=== PATIENT | female | born 1955 | race Caucasian/White ===

== ENCOUNTER → 2016-10-20 | Outpatient (CLI) | payer BC, OTHER ==
--- NOTE | 2016-10-20 12:14 | MA ---
Diagnostic Digital Mammogram Right Breast With iCAD Analysis Clinical Indications: Follow-up probably benign area of glandular asymmetry noted in the central righ t breast on the oblique view from the screening study January 14, 2016 and further evaluated on diagnos tic assessment January 17, 2016. Technique: Standard cephalocaudal and mediolateral oblique projections of the right breast are obtai analia. This examination is processed by the iCAD computer aided detection system. Comparison: December 2015. Breast density: Type 2; 25 to 50%. Findings: CAD was reviewed. Mild glandular asymmetry in the central right breast on the oblique view is unchanged. No suspicious microcalcifications are seen. No correlate is found on the craniocaudal v iew. Impression: Benign 6 month mammographic follow-up, BI-RADS 2. Recommendation: Resume routine mammographic screening in December 2016 as long as physical examination i s negative. A verbal report was given to the patient. [facility] will send a result letter to the patient. 6
== END ==
LOC: FIMAGING 11:39
PROVIDERS: ATTEND Internal Medicine
DX: R92.2 Inconclusive mammogram (principal)
CPT/HCPCS: G0206

== ENCOUNTER 2017-08-19 10:42 | Emergency (ER) | payer BC ==
[2017-08-19] MEDS ORDERED: LORazepam 2 MG/ML INJ ONE (10:47)
[2017-08-19 10:53] VITALS: TEMP 98.8
[2017-08-19] MEDS ORDERED: LORazepam 2 MG/ML INJ IVP ONE (10:54)
[2017-08-19] MEDS ORDERED: NS 1,000 ML IV ONE (11:06)
[2017-08-19 11:12] LABS: % IMMATURE GRANULYOCYTES 0.5 % (0.0-1.1); ABSOLUTE IMMATURE GRANULOCYTES 0.06 10^3/uL (0.00-0.10); ADD DIFF? NO; ADD MORPH? NO; ADD SCAN? NO; ATYPICAL LYMPHOCYTE FLAG 10 (0-99); FRAGMENT RBC FLAG 0 (0-99); HEMATOCRIT 52.4 % (38.0-47.0); HEMOGLOBIN 17.7 g/dL (12.6-16.3); LEFT SHIFT FLG 0 (0-99); LIPEMIA HEMOLYSIS FLAG 90 (0-99); MEAN CELL HEMOGLOBIN 30.5 pg (27.9-34.1); MEAN CELL HEMOGLOBIN CONCENTR. 33.8 g/dL (32.4-36.7); MEAN CELL VOLUME 90.3 fL (81.5-99.8); MEAN PLATELET VOLUME 8.6 fL (8.7-11.7); PLATELET CLUMPS FLAG 0 (0-99); PLATELET COUNT 365 10^3/uL (150-400); RED CELL DISTRIBUTION WIDTH 13.9 % (11.5-15.2)
--- NOTE | 2017-08-19 11:16 | CPEKG ---
Heart Rate: 108 RR Interval: 556 P-R Interval: 128 QRSD Interval: 72 QT Interval: 328 QTC Interval: 440 P [place]: 31 QRS [place]: -16 T Wave [place]: 17 EKG Severity - OTHERWISE NORMAL ECG - EKG Impression: SINUS TACHYCARDIA EKG Impression: BORDERLINE LEFT AXIS DEVIATION Electronically Signed By: Sharif Savage 19-Aug-2017 12:57:04
[2017-08-19 11:17] LABS: ANION GAP 19 mEq/L (8-16); CALCIUM 9.9 mg/dL (8.5-10.4); CARBON DIOXIDE 15 mEq/l (22-31); CHLORIDE 106 mEq/L (97-110); CREATININE 0.8 mg/dL (0.6-1.0); GLOMERULAR FILTRATION RATE > 60; GLUCOSE 82 mg/dL (70-100); POTASSIUM 4.6 mEq/L (3.5-5.2); SODIUM 140 mEq/L (134-144)
--- NOTE | 2017-08-19 12:00 | EDPHY ---
H & P Time Seen by Provider: 08/19/17 11:36 HPI/ROS: CHIEF COMPLAINT: Seizure HISTORY OF PRESENT ILLNESS: 62-year-old woman is on multiple medications for rheumatoid arthritis including daily benzodiazepine. She woke up early this morning at 4:45 a.m. and had 40 oz of very strong coffee which is typical for her and then felt dehydrated and lightheaded went to the bed and then does not remember anything else. Her reports seeing her clenched all 4 extremities foam at the mouth and have flexion seizure type activity for couple of minutes. She was confused afterwards and did bite her tongue and was incontinent. Currently she feels back to normal. Of note she started Wellbutrin when she saw the [facility] in February for an attempt to quit smoking. REVIEW OF SYSTEMS: Eye: no change in vision ENT: no sore throat Cardiac: no chest pain or syncope Pulmonary: no cough or SOB Abdomen: no vomiting, diarrhea, abdominal pain Musculoskeletal: no back pain Skin: no rash Neuro: no headache Constitutional: no fever : no urinary symptoms A comprehensive 10 point review of systems is otherwise negative aside from elements mentioned in the history of present illness. PAST MEDICAL HISTORY: Rheumatoid arthritis and fibromyalgia, anxiety Social history: , infrequent alcohol. General Appearance: Alert and conversant, cooperative. Eyes: No scleral icterus. ENT, Mouth: right sided tongue abrasion. Respiratory: Normal respiratory effort, breath sounds equal, lungs are clear to auscultation. Cardiovascular: Regular rate and rhythm. Gastrointestinal: Abdomen is soft and non tender. Neurological: Alert and oriented x3. Normally conversant. Face symmetric, normal movement and sensation in all extremities. Skin: Warm and dry, no rashes. Musculoskeletal: No peripheral edema and no joint swelling. Psychiatric: Not agitated. Emergency Department course/MDM: Patient has low venous bicarbonate of 15, tongue abrasion, incontinence, describes seizure activity and was confused afterwards for at least 20 minutes. More likely to be seizure than syncope. Noncontrast head CT, warned no further Wellbutrin which I think is the most likely cause. Warned no driving. 1400: discussed negative head CT per Nati with the patient. 1417: Discussed with Jensen. Discharge with no further Wellbutrin, especially as the patient is been only intermittently taking it. She stopped about a month ago and then only restarted at 3 or 4 days ago. 1445: Neurologically stable, okay for discharge. Smoking Status: Current every day smoker Constitutional: Initial Vital Signs Temperature (C) 37.1 C 08/19/17 10:51 Heart Rate 127 H 08/19/17 10:51 Respiratory Rate 20 08/19/17 10:51 Blood Pressure 117/98 H 08/19/17 10:51 O2 Sat (%) 93 08/19/17 10:51 O2 Delivery Mode Room Air Allergies/Adverse Reactions: milnacipran HCl [From Savella] Allergy (Verified 05/17/12 11:57) FACIAL SWELLING pregabalin [From Lyrica] Allergy (Verified 05/17/12 11:56) FACIAL SWELLING Home Medications: Medication Instructions Recorded LORazepam 01/01/10 LUNESTA 01/01/10 Naprosyn 01/01/10 OXYCODONE HCL 01/01/10 Orencia 01/01/10 Xanax 01/01/10 traZODone HCL 01/01/10 Medical Decision Making - Diagnostics EKG Interpretation: 12-lead EKG interpreted by me; official reading is in trace master. My interpretation is sinus tachycardia rate 108 with borderline left axis Imaging Results: Imaging Impressions Head CT 08/19/17 11:56 Impression: 1. No acute intracranial findings. If symptoms persist and clinical suspicion warrants, consider MRI. 2. Diffuse cerebral atrophy with periventricular and subcortical low attenuation consistent with chronic microvascular ischemic gliosis. Findings discussed with ROBB CHO 08/19/2017 at 13:38. Differential Diagnosis: Differential diagnosis considered for a seizure including but not limited to electrolyte abnormality, alcohol withdrawal, medication noncompliance, head injury, and breakthrough seizure. - Data Points Laboratory Results: Laboratory Results 08/19/17 10:55 08/19/17 10:55 08/19/17 08/19/17 10:55 10:55 WBC 11.15 10^3/uL H 10^3/uL (3.80-9.50) RBC 5.80 10^6/uL H 10^6/uL (4.18-5.33) Hgb 17.7 g/dL H g/dL (12.6-16.3) Hct 52.4 % H % (38.0-47.0) MCV 90.3 fL fL (81.5-99.8) MCH 30.5 pg pg (27.9-34.1) MCHC 33.8 g/dL g/dL (32.4-36.7) RDW 13.9 % % (11.5-15.2) Plt Count 365 10^3/uL 10^3/uL (150-400) MPV 8.6 fL L fL (8.7-11.7) Neut % (Auto) 46.0 % % (39.3-74.2) Lymph % (Auto) 43.4 % % (15.0-45.0) [place] % (Auto) 7.4 % % (4.5-13.0) Eos % (Auto) 2.0 % % (0.6-7.6) Baso % (Auto) 0.7 % % (0.3-1.7) Nucleat RBC Rel Count 0.0 % % (0.0-0.2) Absolute Neuts (auto) 5.13 10^3/uL 10^3/uL (1.70-6.50) Absolute Lymphs (auto) 4.84 10^3/uL H 10^3/uL (1.00-3.00) Absolute Monos (auto) 0.82 10^3/uL H 10^3/uL (0.30-0.80) Absolute Eos (auto) 0.22 10^3/uL 10^3/uL (0.03-0.40) Absolute Basos (auto) 0.08 10^3/uL 10^3/uL (0.02-0.10) Absolute Nucleated RBC 0.00 10^3/uL 10^3/uL (0-0.01) Immature Gran % 0.5 % % (0.0-1.1) Immature Gran # 0.06 10^3/uL 10^3/uL (0.00-0.10) Sodium 140 mEq/L mEq/L (134-144) Potassium 4.6 mEq/L mEq/L (3.5-5.2) Chloride 106 mEq/L mEq/L (97-110) Carbon Dioxide 15 mEq/l L mEq/l (22-31) Anion Gap 19 mEq/L H mEq/L (8-16) BUN 12 mg/dL mg/dL (7-23) Creatinine 0.8 mg/dL mg/dL (0.6-1.0) Estimated GFR > 60 Glucose 82 mg/dL mg/dL (70-100) Calcium 9.9 mg/dL mg/dL (8.5-10.4) Medications Given: Discontinued Medications Sodium Chloride (Ns) 1,000 mls @ 0 mls/hr IV EDNOW ONE; Wide Open PRN Reason: Protocol Stop: 08/19/17 11:07 Last Admin: 08/19/17 11:10 Dose: 1,000 mls Lorazepam (Ativan Injection) 1 mg IVP EDNOW ONE Stop: 08/19/17 10:55 Last Admin: 08/19/17 10:56 Dose: 1 mg Departure - Departure Disposition: Home, Routine, Self-Care Clinical Impression: Seizure Condition: Good Instructions: New-Onset Seizure in Adults (ED) Additional Instructions: No driving. Follow up with Dr. Jensen Neurology next week. Stop Wellbutrin. Referrals: Timothy Jensen MD [Medical Doctor] - As per Instructions
[2017-08-19 12:01] VITALS: PULSE 100
[2017-08-19 14:29] VITALS: BP 131/92; RESP 16; O2SAT 96
== END 2017-08-19 14:49 | disposition home or self-care (01) ==
LOC: EDUNIT#
DX: R56.9 Unspecified convulsions (principal); F17.200 Nicotine dependence, unspecified, uncomplicated; E86.9 Volume depletion, unspecified
CPT/HCPCS: 96374; J2060

== ENCOUNTER → 2017-11-27 | Outpatient (CLI) | payer BC | LOC: FIMAGING 13:01 | PROVIDERS: ATTEND Internal Medicine | DX: Z12.31 Encounter for screening mammogram for malignant neoplasm of breast (principal) ==

== ENCOUNTER → 2018-11-30 | Outpatient (CLI) | payer OTHER | LOC: FIMAGING 14:04 | PROVIDERS: ATTEND Internal Medicine | DX: Z12.31 Encounter for screening mammogram for malignant neoplasm of breast (principal) ==